=== PATIENT | male | born 2000 | race Two or more races ===

== ENCOUNTER 2025-04-03 23:32 | Emergency (ER) | payer SELFPAY ==
[2025-04-03 23:56] VITALS: BMI 20.7
[2025-04-03 23:58] VITALS: BP 127/68; PULSE 120; RESP 19; TEMP 37.1; O2SAT 97; BMI 20.7
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
== END 2025-04-04 00:20 ==
LOC: SERX 04-04 00:06
PROVIDERS: Emergency Provider Emergency Medicine
DX: Z02.89 Encounter for other administrative examinations (principal); Z04.1 Encounter for examination and observation following transport accident
CPT/HCPCS: 99281